=== PATIENT | male | born 1965 | race Caucasian/White ===

== ENCOUNTER → 2018-11-04 08:22 | Outpatient (CLI) | payer OTHER, MEDICAID, SELFPAY ==
[2018-11-04 09:57] LABS: Alanine Aminotransferase 35 IU/L (21-72); Albumin 4.1 g/dL (3.5-5.0); Albumin Globulin Ratio 1.2 (1.0-2.8); Alkaline Phosphatase 125 U/L (38-126); Aspartate Aminotransferase 19 IU/L (17-59); BUN Creatinine Ratio 14.3 (6-22); Bilirubin Total 0.3 mg/dL (0.2-1.3); Blood Urea Nitrogen 10 mg/dL (9-20); Calcium 9.1 mg/dL (8.4-10.2); Carbon Dioxide 31 mmol/L (22-32); Chloride 102 mmol/L (98-107); Cholesterol 148 mg/dL (140-199); Estimated Glomerular Filt Rate > 60.0 mL/min (>60); Globulin 3.3 g/dL (1.7-4.1); Glucose 91 mg/dL (70-100); HDL Cholesterol 54 mg/dL (40-60); HEMOLYSIS < 15 (0-50); LDL Cholesterol Calculated 77 mg/dL (<100); Potassium 4.7 mmol/L (3.4-5.1); Sodium 145 mmol/L (137-145); Total Protein 7.4 g/dL (6.3-8.2); Triglycerides 86 mg/dL (35-150)
[2018-11-04 10:24] LABS: Prostate Specific Antigen 0.968 ng/mL (0.10-4.00)
== END ==
PROVIDERS: PCP Physician Assistant; Visit Provider Physician Assistant
DX: D50.9 Iron deficiency anemia, unspecified (principal); E66.9 Obesity, unspecified; K22.2 Esophageal obstruction; Z51.81 Encounter for therapeutic drug level monitoring; Z79.899 Other long term (current) drug therapy
CPT/HCPCS: 36415; 80053; 80061; 84153

== ENCOUNTER → 2019-03-24 10:43 | Outpatient (CLI) | payer OTHER, MEDICAID, SELFPAY | PROVIDERS: PCP Physician Assistant; Visit Provider Physician Assistant | DX: J02.9 Acute pharyngitis, unspecified (principal) | CPT/HCPCS: 87070 ==

== ENCOUNTER 2019-09-19 13:38 | Inpatient (IN) | payer OTHER, MEDICAID, SELFPAY ==
[2019-09-19] VITALS (9 sets, daily range): BP systolic 120–159; BP diastolic 55–83; PULSE 87–130; RESP 12–24; TEMP 36.8–37.5; O2SAT 92–100; BMI 31.6
--- NOTE | 2019-09-19 13:42 | DI.RAD.S_ITS ---
PROCEDURE: XR CHEST 1V INDICATIONS: sob TECHNIQUE: One view of the chest was acquired. COMPARISON: None. FINDINGS: Surgical changes and devices: None. Lungs and pleura: Lungs are clear. No pleural effusions or pneumothorax. Mediastinum: Mediastinal contours appear normal. Heart size is normal. Bones and chest wall: No suspicious bony lesions. Overlying soft tissues appear unremarkable. IMPRESSION: No acute cardiopulmonary abnormality. Dictated by: Blaine Murry M.D. on 09/19/2019 at 13:23 Approved by: Blaine Murry M.D. on 09/19/2019 at 13:25
[2019-09-19] MEDS: SODIUM CHLORIDE 0.9% 1,000 ML 1000 ML IV (13:48)
[2019-09-19] MEDS: methylPREDNISolone 125 MG/2 ML VIAL IV (13:48)
--- NOTE | 2019-09-19 13:49 | PC.NURSE ---
on arrival respiratory at bedside. pt speaking one word at a time, placed on bipap by respiratory per dr blancas order. pt speaking 2-4 words after bipap placed. pt coughing up sputum 1-2 times as well after arrival. pt states he has felt sick for 2 weeks.
--- NOTE | 2019-09-19 13:53 | ED.SOB ---
HPI - SOB/Dyspnea General Chief Complaint: Shortness of Breath/Dyspnea Stated Complaint: Respiratory Distress Time Seen by Provider: 09/19/19 13:41 Source: EMS Mode of arrival: EMS History of Present Illness HPI Narrative: Patient is a 54-year-old male history of asthma presenting with acute onset shortness of breath. According to EMS he was 88% on room air he was given multiple DuoNeb treatments in route he continues to be in try potting in acute respiratory distress. He is able to speak now and is starting to feel better he starting to cough up more.. He denies any chest pain. No prior intubations. Patient states that over the past 2 weeks he has been eating his albuterol inhaler more frequently than normal. He has also been coughing up thick mucus. He has been having some increasing shortness of breath with exertion. Complaint: shortness of breath Onset (ago): minute(s) Related Data Home Medications Medication Instructions Recorded Confirmed albuterol sulfate INHALATION 09/19/19 tramadol mg 09/19/19 Allergies Allergy/AdvReac Type Severity Reaction Status Date / Time No Known Drug Allergies Allergy Verified 09/19/19 13:47 Review of Systems Review of Systems ROS Unobtainable: All systems reviewed & are unremarkable except as noted in HPI and below Constitutional Constitutional: Denies chills, Denies fever(s), Denies lethargy and Denies weakness Eyes Eyes: Denies change in vision, Denies eye discharge, Denies irritation and Denies loss of vision ENT Ears, Nose, Mouth, and Throat: Denies change in voice, Denies neck pain and Denies sore throat Cardiovascular Cardiovascular: Denies chest pain, Denies irregular heart rhythm, Denies lightheadedness, Denies palpitations and Denies orthopnea Respiratory Respiratory: Reports as per HPI, Reports change in phlegm color, Reports chest congestion and Reports cough Gastrointestinal Gastrointestinal: Denies abdominal pain, Denies change in bowel habits, Denies diarrhea, Denies nausea and Denies vomiting Musculoskeletal Musculoskeletal: Denies neck pain Integumentary/Breasts Skin/Breast: Denies pruritus, Denies erythema, Denies rash and Denies wounds Neurologic Neurologic: Denies loss of vision and Denies weakness Endocrine Endocrine: Denies palpitations Patient History Medical History (Updated 09/19/19 @ 18:04 by Jyothi Ferraro MD) Asthma (Acute) Chronic GERD (Acute) Gastric ulcer (Acute) History of umbilical hernia (Acute) Osteoarthrosis, ankle and foot (Acute) Surgical History (Updated 09/19/19 @ 18:04 by Jyothi Ferraro MD) Status post ORIF of fracture of ankle (Acute) Family History (Updated 09/19/19 @ 18:05 by Jyothi Ferraro MD) Father Throat cancer Social History household members: spouse Smoking Status: Former smoker Family History (Updated 09/19/19 @ 18:05 by Jyothi Ferraro MD) Father Throat cancer Social History household members: spouse Smoking Status: Former smoker tobacco type: cigarettes alcohol intake frequency: holidays/special occasions only Substance Use Type: does not use Exam Initial Vital Signs Initial Vital Signs: Vital Signs Temperature 98.2 F 09/19/19 13:35 Pulse Rate 130 H 09/19/19 13:35 Respiratory Rate 24 09/19/19 13:35 Blood Pressure 159/83 H 09/19/19 13:35 Pulse Oximetry 98 09/19/19 13:35 GENERAL: Try potting slightly cyanotic and mottled, alert HEENT: Head atraumatic,EOMI, pupils reactive, face symmetric CARDIOVASCULAR: Regular rate and rhythm without murmurs, rubs or gallops. RESPIRATORY: Decreased breath sounds bilaterally speaks in 1 word sentences ABDOMEN: Soft, nontender. Normoactive bowel sounds all 4 quadrants. No guarding or rebound. EXTREMITIES: Normal range of motion, no clubbing or edema. Neurovascularly intact NEUROLOGICAL: Alert and oriented x4.Normal gait and speech. Cranial nerves II through XII grossly intact. SKIN: Warm, dry, no laceration, no petechiae, no rashes or lesions. Course Orders Ordered: ED Orders 09/19/19 13:40 B Type Natriuretic Peptide Stat Complete Blood Count AUTO DIFF Stat Comprehensive Metabolic Panel Stat Lactate (Lactic Acid) Stat Magnesium Stat Partial Thromboplastin Time Stat Procalcitonin Stat Prothrombin Time INR Stat Troponin & CK Cardiac Panel Stat 09/19/19 13:42 Consult to Respiratory Therapy Evaluate & Treat XR chest 1V Stat 09/19/19 13:45 Arterial Blood Gas Stat 09/19/19 14:07 Blood Culture Stat Acetaminophen (Tylenol) 650 mg PO Q6HR PRN PRN Reason: As Needed for Fever/Mild Pain Albuterol (Ventolin) 2.5 mg INH Q1HR PRN PRN Reason: Shortness Of Breath Or Wheezing Albuterol/Ipratropium (Duoneb) 3 ml INH RTQ4HR PRN PRN Reason: Shortness Of Breath Enoxaparin Sodium (Lovenox) 40 mg SUBCUT DAILY [facility] Sodium Chloride (Normal Saline 0.9%) 1,000 mls @ 1,000 mls/hr IV BOLUS PRN PRN Reason: Fluid replacement Last Infusion: 09/19/19 14:55 Dose: 0 mls/hr Documented by: Admin: 09/19/19 13:48 Dose: 1,000 mls/hr Documented by: JAYA Methylprednisolone (Solu-Medrol 125 Mg Vial) 60 mg IV Q8H [facility] Last Admin: 09/19/19 18:17 Dose: 60 mg Documented by: JENNIFER Metoclopramide HCl (Reglan) 10 mg IV Q6HR PRN PRN Reason: Nausea And Vomiting Pantoprazole Sodium (Protonix) 40 mg PO 0600,1800 [facility] Last Admin: 09/19/19 19:06 Dose: 40 mg Documented by: JENNIFER Discontinued Medications Albuterol (Proventil 0.5% Neb Solution) 10 mg INH CONT REZA Stop: 09/19/19 14:42 Last Admin: 09/19/19 14:05 Dose: 10 mg Documented by: KIMBERLY Methylprednisolone (Solu-Medrol 125 Mg Vial) 125 mg IV NOW ONE Stop: 09/19/19 13:43 Last Admin: 09/19/19 13:48 Dose: 125 mg Documented by: JAYA Vital Signs Vital signs: Vital Signs - 8 hr 09/19/19 13:35 09/19/19 13:55 09/19/19 14:38 Temperature 98.2 F Pulse Rate 130 H 119 H 116 H Respiratory Rate 24 16 19 Blood Pressure 159/83 H Blood Pressure [Right Arm] 159/83 H 138/73 Pulse Oximetry 98 98 100 09/19/19 15:18 Temperature Pulse Rate 113 H Respiratory Rate 17 Blood Pressure Blood Pressure [Right Arm] 140/75 Pulse Oximetry 94 MDM - SOB/Dyspnea Lab Data Attestation: I reviewed the patient's lab results. Result diagrams: 09/19/19 13:40 09/19/19 13:40 Labs: Lab Results 09/19/19 09/19/19 09/19/19 Range/Units 13:40 13:40 13:40 WBC 11.7 H (4.5-11.0) X10^3/uL RBC 5.61 (4.5-5.9) X10^6/uL Hgb 13.4 L (13.5-17.5) g/dL Hct 41.4 (41-53) % MCV 73.8 L (80-100) fL MCH 23.9 L (26-34) PG MCHC 32.3 (30-36) % RDW 17.5 H (11.6-14.8) % Plt Count 487 H (150-400) X10^3/uL Neut % (Auto) 37.2 L (50-75) % Lymph % (Auto) 47.5 H (25-40) % [place] % (Auto) 8.2 (3-14) % Eos % (Auto) 5.9 H (2-4) % Baso % (Auto) 1.2 (0-2) % Neut # (Auto) 4400 (1561-0405) /uL Lymph # (Auto) 5600 H (2754-2267) /uL [place] # (Auto) 1000 H (0-900) /uL Eos # (Auto) 700 H (0-450) /uL Baso # (Auto) 100 (0-100) /uL PT 10.5 (10.1-12.7) SECONDS INR 0.9 (0.9-1.3) APTT 40 H (26.4-36.2) SECONDS ABG pH (7.35-7.45) ABG pCO2 (35-45) mmHg ABG pO2 (80-100) mmHg ABG HCO3 (22-26) mmol/L ABG Total CO2 (21-31) mmol/L ABG O2 Saturation (95-100) % ABG Base Excess (-2-2) mmol/L FiO2 Sodium 142 (137-145) mmol/L Potassium 3.6 (3.4-5.1) mmol/L Chloride 105 (98-107) mmol/L Carbon Dioxide 22 (22-32) mmol/L BUN 17 (9-20) mg/dL Creatinine 0.70 (0.66-1.25) mg/dL Estimated GFR > 60.0 (>60) mL/min BUN/Creatinine Ratio 24.3 H (6-22) Glucose 126 H (70-100) mg/dL Lactate (0.7-2.1) mmol/L Calcium 8.8 (8.4-10.2) mg/dL Magnesium 2.5 H (1.6-2.3) mg/dL Total Bilirubin 0.4 (0.2-1.3) mg/dL AST 43 (17-59) IU/L ALT 23 (21-72) IU/L Alkaline Phosphatase 155 H (38-126) U/L Total Creatine Kinase 140 (55-170) U/L CK-MB (CK-2) 1.39 (<2.37) ng/mL CK-MB (CK-2) Rel Index 1.0 L (1.5-5.0) % Troponin I < 0.012 (0.01-0.034) ng/mL B-Natriuretic Peptide < 100 (<100) Total Protein 8.4 H (6.3-8.2) g/dL Albumin 4.6 (3.5-5.0) g/dL Globulin 3.8 (1.7-4.1) g/dL Albumin/Globulin Ratio 1.2 (1.0-2.8) Procalcitonin (<0.5) ng/mL 09/19/19 09/19/19 09/19/19 Range/Units 13:40 13:40 13:45 WBC (4.5-11.0) X10^3/uL RBC (4.5-5.9) X10^6/uL Hgb (13.5-17.5) g/dL Hct (41-53) % MCV (80-100) fL MCH (26-34) PG MCHC (30-36) % RDW (11.6-14.8) % Plt Count (150-400) X10^3/uL Neut % (Auto) (50-75) % Lymph % (Auto) (25-40) % [place] % (Auto) (3-14) % Eos % (Auto) (2-4) % Baso % (Auto) (0-2) % Neut # (Auto) (9305-8804) /uL Lymph # (Auto) (8298-0909) /uL [place] # (Auto) (0-900) /uL Eos # (Auto) (0-450) /uL Baso # (Auto) (0-100) /uL PT (10.1-12.7) SECONDS INR (0.9-1.3) APTT (26.4-36.2) SECONDS ABG pH 7.37 (7.35-7.45) ABG pCO2 45.9 H (35-45) mmHg ABG pO2 127 H (80-100) mmHg ABG HCO3 26 (22-26) mmol/L ABG Total CO2 28 (21-31) mmol/L ABG O2 Saturation 99 (95-100) % ABG Base Excess 1.0 (-2-2) mmol/L FiO2 0.50 Sodium (137-145) mmol/L Potassium (3.4-5.1) mmol/L Chloride (98-107) mmol/L Carbon Dioxide (22-32) mmol/L BUN (9-20) mg/dL Creatinine (0.66-1.25) mg/dL Estimated GFR (>60) mL/min BUN/Creatinine Ratio (6-22) Glucose (70-100) mg/dL Lactate 1.9 (0.7-2.1) mmol/L Calcium (8.4-10.2) mg/dL Magnesium (1.6-2.3) mg/dL Total Bilirubin (0.2-1.3) mg/dL AST (17-59) IU/L ALT (21-72) IU/L Alkaline Phosphatase (38-126) U/L Total Creatine Kinase (55-170) U/L CK-MB (CK-2) (<2.37) ng/mL CK-MB (CK-2) Rel Index (1.5-5.0) % Troponin I (0.01-0.034) ng/mL B-Natriuretic Peptide (<100) Total Protein (6.3-8.2) g/dL Albumin (3.5-5.0) g/dL Globulin (1.7-4.1) g/dL Albumin/Globulin Ratio (1.0-2.8) Procalcitonin < 0.05 (<0.5) ng/mL Imaging Data Chest x-ray: Radiologist's impression: PROCEDURE: XR CHEST 1V INDICATIONS: sob TECHNIQUE: One view of the chest was acquired. COMPARISON: None. FINDINGS: Surgical changes and devices: None. Lungs and pleura: Lungs are clear. No pleural effusions or pneumothorax. Mediastinum: Mediastinal contours appear normal. Heart size is normal. Bones and chest wall: No suspicious bony lesions. Overlying soft tissues appear unremarkable. IMPRESSION: No acute cardiopulmonary abnormality. Dictated by: Blaine Murry M.D. on 09/19/2019 at 13:23 ECG Data Attestation: I personally reviewed and interpreted this ECG as follows: Prior ECG tracings: not available for review Interpretation: Sinus tachycardia rate 108 p.r. interval 177 for rest [address] elevations is or T-wave inversions. No sign of ischemia. MDM Narrative Medical decision making narrative: Patient is tolerating BiPAP very well he is able to speak in full sentences. He is placed on continuous nebulizer overall breathing started to improve having wheezing in his chest now. He wanted to try with the mask off. It is in his BiPAP was stopped he actually started coughing. He does cough up thickened mucus. He is feeling better. The patient has a history of asthma seems to be asthma exacerbation. He has no leukocytosis procalcitonin elevation or pneumonia on x-ray. At this time no indication for antibiotics. Dr. ferraro updated on patient's symptoms test results in the ED to see and evaluate patient Discharge Plan Departure Patient Disposition: Admitted As Inpatient Clinical Impression: Asthma with exacerbation Qualifiers: Asthma severity: severe Asthma persistence: unspecified Qualified Code(s): J45.901 - Unspecified asthma with (acute) exacerbation Discharge Date/Time: 09/19/19 17:20 Admit Date/Time: 09/19/19 15:45 Admit Provider: Jyothi Ferraro
[2019-09-19 14:04] LABS: HCO3 ABG 26 mmol/L (22-26); Oxygen Saturation ABG 99 % (95-100); PCO2 ABG 45.9 mmHg (35-45); PO2 ABG 127 mmHg (80-100); TCO2 ABG 28 mmol/L (21-31); pH ABG 7.37 (7.35-7.45)
[2019-09-19] MEDS: ALBUTEROL 0.5% CONTINUOUS NEB 10 MG INH (14:05)
[2019-09-19 14:10] LABS: INR 0.9 (0.9-1.3); Prothrombin Time 10.5 SECONDS (10.1-12.7)
[2019-09-19 14:12] LABS: PTT Partial Thromboplastin Tim 40 SECONDS (26.4-36.2)
[2019-09-19 14:14] LABS: Alanine Aminotransferase 23 IU/L (21-72); Albumin 4.6 g/dL (3.5-5.0); Albumin Globulin Ratio 1.2 (1.0-2.8); Alkaline Phosphatase 155 U/L (38-126); Aspartate Aminotransferase 43 IU/L (17-59); BUN Creatinine Ratio 24.3 (6-22); Bilirubin Total 0.4 mg/dL (0.2-1.3); Blood Urea Nitrogen 17 mg/dL (9-20); Calcium 8.8 mg/dL (8.4-10.2); Carbon Dioxide 22 mmol/L (22-32); Chloride 105 mmol/L (98-107); Creatine Kinase 140 U/L (55-170); Estimated Glomerular Filt Rate > 60.0 mL/min (>60); Globulin 3.8 g/dL (1.7-4.1); Glucose 126 mg/dL (70-100); Magnesium 2.5 mg/dL (1.6-2.3); Potassium 3.6 mmol/L (3.4-5.1); Sodium 142 mmol/L (137-145); Total Protein 8.4 g/dL (6.3-8.2)
[2019-09-19 14:16] LABS: B Type Natriuretic Peptide < 100 (<100)
[2019-09-19 14:39] LABS: Lactate (Lactic Acid) 1.9 mmol/L (0.7-2.1)
[2019-09-19 14:47] LABS: Procalcitonin < 0.05 ng/mL (<0.5)
[2019-09-19 14:59] LABS: Creatine Kinase MB 1.39 ng/mL (<2.37); Troponin I < 0.012 ng/mL (0.01-0.034)
[2019-09-19 15:05] LABS: Add Manual Diff / Slide Review NO; Basophils Absolute Auto 100 /uL (0-100); Basophils Percent Auto 1.2 % (0-2); Eosinophils Absolute Auto 700 /uL (0-450); Eosinophils Percent Auto 5.9 % (2-4); Hematocrit 41.4 % (41-53); Hemoglobin 13.4 g/dL (13.5-17.5); Lymphocytes Absolute Auto 5600 /uL (1100-4500); Lymphocytes Percent Auto 47.5 % (25-40); Mean Corpuscular HGB Conc 32.3 % (30-36); Mean Corpuscular Hemoglobin 23.9 PG (26-34); Mean Corpuscular Volume 73.8 fL (80-100); Monocytes Absolute Auto 1000 /uL (0-900); Monocytes Percent Auto 8.2 % (3-14); Neutrophils Absolute Auto 4400 /uL (1500-7000); Neutrophils Percent Auto 37.2 % (50-75); Platelet Count 487 X10^3/uL (150-400); Red Blood Cell Count 5.61 X10^6/uL (4.5-5.9); Red Cell Distribution Width 17.5 % (11.6-14.8); White Blood Cell Count 11.7 X10^3/uL (4.5-11.0)
--- NOTE | 2019-09-19 15:28 | PC.NURSE ---
lung sounds +aeration, wheezing, sat 94-96% with RA.
--- NOTE | 2019-09-19 17:03 | PM.HP.1 ---
History of Present Illness History of Present Illness Date Patient Seen: 09/19/19 Time Patient Seen: 17:36 Chief complaint: Respiratory Distress Narrative: This is a 54 year old male with Acute Bronchospam and hypoxia. He works nights at a [employer] [place] and then sleeps during the day. Early this afternoon while sleeping at his usual time he began coughing and then was awakened as he aspirated gastric secretions due to his severe GERD. This produced increased coughing, which had already been escalating over the last 3 days. On arrival at the emergency department he was in acute hypoxic respiratory failure with an asthma exacerbation. He was tripoding and was satting in the 89-91% range on room air. With immediate application of BiPAP and continuous nebulizer albuterol his oxygenation improved and he was able to stabilize and come off the BiPAP after several hours. His cough is noted be productive of thick yellow mucus sputum. He has an extensive GERD history and reports an EGD two and a half years ago showing normal Esophagus but a small ulcer in his stomach. Since then he has been taking 40 mg of Omeprazole BID. With this coughing he has had some retrosternal chest pain pleuritic in nature. He additionally takes 4-8 Advil during his 12 hour shifts at the [employer]. There has been no fever, chills, sweats. Patient History Medical History (Updated 09/19/19 @ 18:04 by Jyothi Ferraro MD) Asthma (Acute) Chronic GERD (Acute) Gastric ulcer (Acute) History of umbilical hernia (Acute) Osteoarthrosis, ankle and foot (Acute) Surgical History (Updated 09/19/19 @ 18:04 by Jyothi Ferraro MD) Status post ORIF of fracture of ankle (Acute) Family History (Updated 09/19/19 @ 18:05 by Jyothi Ferraro MD) Father Throat cancer Social History household members: spouse Smoking Status: Former smoker Family & Social History Family History (Updated 09/19/19 @ 18:05 by Jyothi Ferraro MD) Father Throat cancer Safety & Behavioral: Feels Safe in Current Yes Environment Been Physically Hurt or No Threatened By a Person Tobacco & Substance use: Smoking Status Former smoker alcohol intake frequency holiday/special occasion Substance Use Type does not use Comment: His backup decision maker is his in [place] and his primary care physician is CHAPIS Jones. Meds Home Medications and Allergies Home Medications Medication Instructions Recorded Confirmed Type albuterol sulfate INHALATION 09/19/19 History tramadol mg 09/19/19 History Allergies Allergy/AdvReac Type Severity Reaction Status Date / Time No Known Drug Allergies Allergy Verified 09/19/19 13:47 Review of Systems Review of Systems Narrative: Positive for shortness of breath, substernal chest pain and coughing productive. Negative for fevers, chills, sweats, abdominal pain, nausea, vomiting, diarrhea, bleeding, rashes, seizures, sore throat, new allergies, trouble talking, trouble walking. ROS Unobtainable: All systems reviewed & are unremarkable except as noted in HPI and below Exam Vital Signs (past 8 hours): - 09/19/19 13:35 09/19/19 13:55 09/19/19 14:38 Temperature 98.2 F Pulse Rate 130 H 119 H 116 H Respiratory Rate 24 16 19 Blood Pressure 159/83 H Blood Pressure [Right Arm] 159/83 H 138/73 Pulse Oximetry 98 98 100 09/19/19 15:18 09/19/19 16:21 Temperature Pulse Rate 113 H 108 H Respiratory Rate 17 15 Blood Pressure Blood Pressure [Right Arm] 140/75 120/65 Pulse Oximetry 94 94 Fraction of Inspired Oxygen 40 Oxygen Delivery Method Room Air Oxygen Flow Rate 15 Narrative Exam Narrative: He is alert and oriented x3. He appears to be in mild respiratory distress, losing breath with short sentences. Pupils are equally round and reactive to light and accommodation. Extraocular muscles are intact. No lymph nodes are felt head neck or supraclavicular area. Sclerae are pink and nonicteric. Throat looks normal. There is no thyromegaly. JVD is less than 6 cm and no carotid bruits are heard. Heart is regular rate and rhythm without murmur. Lungs have diffuse wheezing bilaterally. Abdomen is very distended/obese, soft, nontender, no organomegaly, bowel sounds are active. Extremities have no ankle edema. Neuro exam. Cranial nerves 2-12 tested intact. Motor function is 5/5 throughout. There is no tremor. Skin has no rash or jaundice. There is scar on the right ankle. Objective Labs Result Diagrams: 09/19/19 13:40 09/19/19 13:40 Labs: Laboratory Results - last 24 hr 09/19/19 09/19/19 09/19/19 13:40 13:40 13:40 WBC 11.7 H RBC 5.61 Hgb 13.4 L Hct 41.4 MCV 73.8 L MCH 23.9 L MCHC 32.3 RDW 17.5 H Plt Count 487 H Neut % (Auto) 37.2 L Lymph % (Auto) 47.5 H [place] % (Auto) 8.2 Eos % (Auto) 5.9 H Baso % (Auto) 1.2 Neut # (Auto) 4400 Lymph # (Auto) 5600 H [place] # (Auto) 1000 H Eos # (Auto) 700 H Baso # (Auto) 100 PT 10.5 INR 0.9 APTT 40 H ABG pH ABG pCO2 ABG pO2 ABG HCO3 ABG Total CO2 ABG O2 Saturation ABG Base Excess FiO2 Sodium 142 Potassium 3.6 Chloride 105 Carbon Dioxide 22 BUN 17 Creatinine 0.70 Estimated GFR > 60.0 BUN/Creatinine Ratio 24.3 H Glucose 126 H Lactate Calcium 8.8 Magnesium 2.5 H Total Bilirubin 0.4 AST 43 ALT 23 Alkaline Phosphatase 155 H Total Creatine Kinase 140 CK-MB (CK-2) 1.39 CK-MB (CK-2) Rel Index 1.0 L Troponin I < 0.012 B-Natriuretic Peptide < 100 Total Protein 8.4 H Albumin 4.6 Globulin 3.8 Albumin/Globulin Ratio 1.2 Procalcitonin 09/19/19 09/19/19 09/19/19 13:40 13:40 13:45 WBC RBC Hgb Hct MCV MCH MCHC RDW Plt Count Neut % (Auto) Lymph % (Auto) [place] % (Auto) Eos % (Auto) Baso % (Auto) Neut # (Auto) Lymph # (Auto) [place] # (Auto) Eos # (Auto) Baso # (Auto) PT INR APTT ABG pH 7.37 ABG pCO2 45.9 H ABG pO2 127 H ABG HCO3 26 ABG Total CO2 28 ABG O2 Saturation 99 ABG Base Excess 1.0 FiO2 0.50 Sodium Potassium Chloride Carbon Dioxide BUN Creatinine Estimated GFR BUN/Creatinine Ratio Glucose Lactate 1.9 Calcium Magnesium Total Bilirubin AST ALT Alkaline Phosphatase Total Creatine Kinase CK-MB (CK-2) CK-MB (CK-2) Rel Index Troponin I B-Natriuretic Peptide Total Protein Albumin Globulin Albumin/Globulin Ratio Procalcitonin < 0.05 Assessment & Plan Assessment and plan (1) Asthma: Current visit: Yes Status: Acute Assessment & Plan narrative: Acute hypoxic respiratory failure -this appears to be a classic asthmatic bronchospasm presentation/exacerbation. -with BiPAP in the emergency department his oxygenation has improved quite readily but his wheezing and dyspnea are still quite impressive. -he will need to be observed closely in the intensive care unit in case he needs BiPAP again. -continue albuterol and use IV Solu-Medrol. Osteoarthritis of the ankle -not expected to be symptomatic while at bedrest -holding ibuprofen at this time Severe GERD -continue high-dose oral Protonix
[2019-09-19] MEDS: methylPREDNISolone 125 MG/2 ML VIAL 60 MG IV (18:17)
[2019-09-19] MEDS: ALBUTEROL/IPRATROPIUM 3 ML AMPUL INH ×2 (18:20→21:54)
[2019-09-19] MEDS: PANTOPRAZOLE 40 MG TABLET PO (19:06)
[2019-09-20 00:03] VITALS: BP 127/53; PULSE 105; RESP 20; TEMP 37.4; O2SAT 95
[2019-09-20] MEDS: methylPREDNISolone 125 MG/2 ML VIAL 60 MG IV ×2 (00:53→09:30)
[2019-09-20] MEDS: ALBUTEROL/IPRATROPIUM 3 ML AMPUL INH ×2 (02:40→07:26)
[2019-09-20 02:41] VITALS: PULSE 102; RESP 20; O2SAT 93
[2019-09-20 05:09] VITALS: BP 142/48; PULSE 103; RESP 19; TEMP 37.2; O2SAT 93
[2019-09-20 05:26] LABS: Add Manual Diff / Slide Review NO; Basophils Absolute Auto 0 /uL (0-100); Basophils Percent Auto 0.2 % (0-2); Eosinophils Absolute Auto 0 /uL (0-450); Hematocrit 35.6 % (41-53); Hemoglobin 11.5 g/dL (13.5-17.5); Lymphocytes Absolute Auto 500 /uL (1100-4500); Lymphocytes Percent Auto 5.2 % (25-40); Mean Corpuscular HGB Conc 32.3 % (30-36); Mean Corpuscular Hemoglobin 23.6 PG (26-34); Monocytes Absolute Auto 100 /uL (0-900); Monocytes Percent Auto 0.8 % (3-14); Neutrophils Absolute Auto 8800 /uL (1500-7000); Neutrophils Percent Auto 93.8 % (50-75); Platelet Count 407 X10^3/uL (150-400); Red Blood Cell Count 4.88 X10^6/uL (4.5-5.9); Red Cell Distribution Width 17.5 % (11.6-14.8); White Blood Cell Count 9.4 X10^3/uL (4.5-11.0)
[2019-09-20 05:32] LABS: BUN Creatinine Ratio 18.6 (6-22); Blood Urea Nitrogen 13 mg/dL (9-20); Calcium 8.6 mg/dL (8.4-10.2); Carbon Dioxide 22 mmol/L (22-32); Chloride 103 mmol/L (98-107); Estimated Glomerular Filt Rate > 60.0 mL/min (>60); Glucose 295 mg/dL (70-100); HEMOLYSIS < 15 (0-50); Sodium 138 mmol/L (137-145)
[2019-09-20] MEDS: PANTOPRAZOLE 40 MG TABLET PO (05:34)
[2019-09-20 07:18] VITALS: BP 133/68; PULSE 107; RESP 14; TEMP 37.1; O2SAT 94
[2019-09-20 07:28] VITALS: PULSE 96; RESP 17; O2SAT 96
[2019-09-20 08:33] LABS: Hemoglobin A1C% w Est Avg Glu 5.7 % (4.0-6.0)
[2019-09-20] MEDS: ENOXAPARIN 40 MG/0.4 ML SYRINGE SUBCUT (09:30)
--- NOTE | 2019-09-20 10:07 | PC.NURSE ---
Addendum entered by Bibiana Loyola R.N. 09/20/19 13:41: Discharge information provided in cluding Rx for steroids. IV removed and Tele removed. Pt requesting nebulizer for home albuterol use. Request called to Dr Ferraro for d/c. Original Note: Am shift Pt is A/o x4, up ambulating to BR indep. Some SOB noted with activity. Exp wheeze, otherwise clear to auscultation. Spo2 95% RA. Pt with long Hx of Asthma , education provided for elevated CBG while on steroids. Dr Ferraro into see Pt re:follow up with PCP.
--- NOTE | 2019-09-20 11:47 | PM.DS.1 ---
History of Present Illness History of Present Illness Date Patient Seen: 09/20/19 Time Patient Seen: 12:36 Chief complaint: Respiratory Distress Narrative: This is a 54 year old male with Acute Bronchospam and hypoxia. He works nights at a [employer] and then sleeps during the day. Early this afternoon while sleeping at his usual time he began coughing and then was awakened as he aspirated gastric secretions due to his severe GERD. This produced increased coughing, which had already been escalating over the last 3 days. On arrival at the emergency department he was in acute hypoxic respiratory failure with an asthma exacerbation. He was tripoding and was satting in the 89-91% range on room air. With immediate application of BiPAP and continuous nebulizer albuterol his oxygenation improved and he was able to stabilize and come off the BiPAP after several hours. His cough is noted be productive of thick yellow mucus sputum. He has an extensive GERD history and reports an EGD two and a half years ago showing normal Esophagus but a small ulcer in his stomach. Since then he has been taking 40 mg of Omeprazole BID. With this coughing he has had some retrosternal chest pain pleuritic in nature. He additionally takes 4-8 Advil during his 12 hour shifts at the [employer]. There has been no fever, chills, sweats. Discharge Providers Provider Date of admission: 09/19/19 15:45 Discharge Date: 09/20/19 Primary care physician: Kanwal Jones PA-C Consults: 09/19/19 13:42 Consult to Respiratory Therapy Evaluate & Treat Comment: Physician Instructions: Evaluate and treat Discharge provider: Jyothi Ferraro MD Summary Hospital Course Discharge Diagnosis: Asthma Acute hypoxic respiratory failure Osteoarthritis of the ankle Severe GERD Chemical Diabetes Hospital Course: Asthma: Acute hypoxic respiratory failure -this appears to be a classic asthmatic bronchospasm presentation/exacerbation. -with BiPAP in the emergency department his oxygenation improved quite readily but his wheezing and dyspnea were still quite impressive so he required ICU care overnight. -he improved much more quickly than predictable and is now stable for discharge home. -continue albuterol inhaler, add nebulizer albuterol per his request, continue prednisone and follow up with primary care soon. Osteoarthritis of the ankle -advised to avoid excessive use of ibuprofen and to work on losing weight to control both his tendency towards pre diabetes and his severe reflux. Severe GERD -continue high-dose oral Omeprazole (40 mg BID), speak with his primary care about referral for surgical treatment due to the complications this is causing, now with this acute bronchospastic admission caused by the acid reflux. 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 Exam Vital Signs (past 8 hours): - 09/20/19 05:09 09/20/19 07:18 09/20/19 07:28 Temperature 98.9 F 98.7 F Pulse Rate 103 H 107 H 96 H Respiratory Rate 19 14 17 Blood Pressure 142/48 H 133/68 Pulse Oximetry 93 94 96 Fraction of Inspired Oxygen 21 Oxygen Delivery Method Room Air Oxygen Flow Rate 0 Narrative Exam Narrative: He is alert and oriented x3. No apparent distress. Heart is regular rate and rhythm without murmur. Lungs are now clear to auscultation bilaterally. There is no ankle edema. Objective Labs Result Diagrams: 09/20/19 05:00 09/20/19 05:00 Labs: Laboratory Results - last 24 hr 09/19/19 09/19/19 09/19/19 13:40 13:40 13:40 WBC 11.7 H RBC 5.61 Hgb 13.4 L Hct 41.4 MCV 73.8 L MCH 23.9 L MCHC 32.3 RDW 17.5 H Plt Count 487 H Neut % (Auto) 37.2 L Lymph % (Auto) 47.5 H [place] % (Auto) 8.2 Eos % (Auto) 5.9 H Baso % (Auto) 1.2 Neut # (Auto) 4400 Lymph # (Auto) 5600 H [place] # (Auto) 1000 H Eos # (Auto) 700 H Baso # (Auto) 100 PT 10.5 INR 0.9 APTT 40 H ABG pH ABG pCO2 ABG pO2 ABG HCO3 ABG Total CO2 ABG O2 Saturation ABG Base Excess FiO2 Sodium 142 Potassium 3.6 Chloride 105 Carbon Dioxide 22 BUN 17 Creatinine 0.70 Estimated GFR > 60.0 BUN/Creatinine Ratio 24.3 H Glucose 126 H Hemoglobin A1c Lactate Calcium 8.8 Magnesium 2.5 H Total Bilirubin 0.4 AST 43 ALT 23 Alkaline Phosphatase 155 H Total Creatine Kinase 140 CK-MB (CK-2) 1.39 CK-MB (CK-2) Rel Index 1.0 L Troponin I < 0.012 B-Natriuretic Peptide < 100 Total Protein 8.4 H Albumin 4.6 Globulin 3.8 Albumin/Globulin Ratio 1.2 Procalcitonin Nasal Screen MRSA (PCR) 09/19/19 09/19/19 09/19/19 13:40 13:40 13:45 WBC RBC Hgb Hct MCV MCH MCHC RDW Plt Count Neut % (Auto) Lymph % (Auto) [place] % (Auto) Eos % (Auto) Baso % (Auto) Neut # (Auto) Lymph # (Auto) [place] # (Auto) Eos # (Auto) Baso # (Auto) PT INR APTT ABG pH 7.37 ABG pCO2 45.9 H ABG pO2 127 H ABG HCO3 26 ABG Total CO2 28 ABG O2 Saturation 99 ABG Base Excess 1.0 FiO2 0.50 Sodium Potassium Chloride Carbon Dioxide BUN Creatinine Estimated GFR BUN/Creatinine Ratio Glucose Hemoglobin A1c Lactate 1.9 Calcium Magnesium Total Bilirubin AST ALT Alkaline Phosphatase Total Creatine Kinase CK-MB (CK-2) CK-MB (CK-2) Rel Index Troponin I B-Natriuretic Peptide Total Protein Albumin Globulin Albumin/Globulin Ratio Procalcitonin < 0.05 Nasal Screen MRSA (PCR) 09/19/19 09/20/19 09/20/19 18:42 05:00 05:00 WBC 9.4 RBC 4.88 Hgb 11.5 L Hct 35.6 L MCV 73.0 L MCH 23.6 L MCHC 32.3 RDW 17.5 H Plt Count 407 H Neut % (Auto) 93.8 H D Lymph % (Auto) 5.2 L D [place] % (Auto) 0.8 L Eos % (Auto) 0.0 L Baso % (Auto) 0.2 Neut # (Auto) 8800 H Lymph # (Auto) 500 L [place] # (Auto) 100 Eos # (Auto) 0 Baso # (Auto) 0 PT INR APTT ABG pH ABG pCO2 ABG pO2 ABG HCO3 ABG Total CO2 ABG O2 Saturation ABG Base Excess FiO2 Sodium 138 Potassium 4.0 Chloride 103 Carbon Dioxide 22 BUN 13 Creatinine 0.70 Estimated GFR > 60.0 BUN/Creatinine Ratio 18.6 Glucose 295 H D Hemoglobin A1c Lactate Calcium 8.6 Magnesium Total Bilirubin AST ALT Alkaline Phosphatase Total Creatine Kinase CK-MB (CK-2) CK-MB (CK-2) Rel Index Troponin I B-Natriuretic Peptide Total Protein Albumin Globulin Albumin/Globulin Ratio Procalcitonin Nasal Screen MRSA (PCR) Negative for mrsa 09/20/19 05:00 WBC RBC Hgb Hct MCV MCH MCHC RDW Plt Count Neut % (Auto) Lymph % (Auto) [place] % (Auto) Eos % (Auto) Baso % (Auto) Neut # (Auto) Lymph # (Auto) [place] # (Auto) Eos # (Auto) Baso # (Auto) PT INR APTT ABG pH ABG pCO2 ABG pO2 ABG HCO3 ABG Total CO2 ABG O2 Saturation ABG Base Excess FiO2 Sodium Potassium Chloride Carbon Dioxide BUN Creatinine Estimated GFR BUN/Creatinine Ratio Glucose Hemoglobin A1c 5.7 Lactate Calcium Magnesium Total Bilirubin AST ALT Alkaline Phosphatase Total Creatine Kinase CK-MB (CK-2) CK-MB (CK-2) Rel Index Troponin I B-Natriuretic Peptide Total Protein Albumin Globulin Albumin/Globulin Ratio Procalcitonin Nasal Screen MRSA (PCR) Discharge Plan Discharge Plan Patient Disposition: Home Discharge comment: Follow up with [facility] in one week. Continue the 40mg twice daily Omeprazole. Discharge Med Rec/Prescriptions Prescriptions: New prednisone 10 mg tablet 10 mg PO TID Qty: 30 RF: 0 albuterol sulfate 2.5 mg /3 mL (0.083 %) solution for nebulization 2.5 mg INHALATION Q4-6H PRN (Reason: shortness of breath or wheezing) Qty: 90 RF: 0 Continued albuterol sulfate 90 mcg/actuation HFA aerosol inhaler INHALATION RF: 0 tramadol 50 mg Tablet RF: 0 Follow up/Referrals: Kanwal Jones PA-C [Primary Care Provider] - Provider Discharge Instructions Diet: Regular Visit Report/Discharge Packet Instructions: DI for Asthma -- Adult, Prednisone (By mouth) Discharge Data Primary Care Provider: Kanwal Jones
[2019-09-20 11:56] VITALS: BP 128/66; PULSE 99; RESP 13; TEMP 37.2; O2SAT 93
--- NOTE | 2019-09-20 14:30 | CM.DANOTE ---
DCP/Assessment: Reviewed chart. Patient is a 54yr old male admitted to [facility] with acute hypoxiic respiratory failure/asthma. PCP is Kanwal Jones PA-C. Primary payor is 1)[facility] 2)Medicaid. Discussed case in AM rounds with Dr. Ferraro. He reports that patient will be discharging home today without any d/c planning needs. Patient with h/o asthma and medically turned around quickly after nebulizer treatment, short time on Bipap, and steroids. P: Home today with spouse/family. DEREK Briscoe
== END 2019-09-20 14:16 | disposition home or self-care (01) | DRG 133 ==
LOC: ED 15:44 → AC 15:46 → ICU 09-20 07:55
PROVIDERS: Admitting Provider Family Medicine; Emergency Provider Emergency Medicine; PCP Physician Assistant; Visit Provider Family Medicine
DX: J96.01 Acute respiratory failure with hypoxia (principal); J45.901 Unspecified asthma with (acute) exacerbation; K21.9 Gastro-esophageal reflux disease without esophagitis; E09.9 Drug or chemical induced diabetes mellitus without complications; T38.0X5A Adverse effect of glucocorticoids and synthetic analogues, initial encounter; M19.079 Primary osteoarthritis, unspecified ankle and foot; Z87.891 Personal history of nicotine dependence
CPT/HCPCS: 36415; 36600; 71045; 80048; 80053; 82550; 82553; 82805; 83036; 83605; 83735; 83880; 84145; 84484; 85025; 85610; 85730; 87040; 87797; 93005; 93041; 94640; 94660; 94762; 96361; 96374; 99285; J1650; J2930; J7611

== ENCOUNTER → 2019-09-30 12:48 | Outpatient (CLI) | payer OTHER, MEDICAID, SELFPAY ==
[2019-09-19 13:56] VITALS: PULSE 113; RESP 22; O2SAT 100
[2019-09-19 17:52] VITALS: BMI 31.6
[2019-10-02 19:22] LABS: Urea Breath Test >18YRS NOT DETECTED
== END ==
PROVIDERS: PCP Physician Assistant; Visit Provider Nurse Practitioner
DX: K21.0 Gastro-esophageal reflux disease with esophagitis (principal); K22.2 Esophageal obstruction
CPT/HCPCS: 83013

== ENCOUNTER → 2022-11-07 18:11 | Outpatient (CLI) | payer OTHER, MEDICAID, SELFPAY ==
[2019-09-19 13:56] VITALS: PULSE 113; RESP 22; O2SAT 100
[2019-09-19 17:52] VITALS: BMI 31.6
[2022-11-08 12:55] LABS: COVID-19 CEPHEID 4-PLEX PCR Negative (Negative); Influenza A - CEPHEID Flu A POSITIVE (NEGATIVE); Influenza B - CEPHEID Flu B NEGATIVE (NEGATIVE); Respiratory Syncytial Virus Negative (Negative)
== END ==
PROVIDERS: PCP Family Medicine; Visit Provider Physician Assistant
DX: R05.1 Acute cough (principal)
CPT/HCPCS: 0241U

== ENCOUNTER 2022-12-16 13:11 | Emergency (ER) | payer OTHER, MEDICAID, SELFPAY ==
[2019-09-19 13:56] VITALS: PULSE 113; RESP 22; O2SAT 100
[2019-09-19 17:52] VITALS: BMI 31.6
[2022-12-16 13:31] VITALS: BP 156/72; PULSE 103; RESP 24; TEMP 36.9; O2SAT 95; BMI 23.7
--- NOTE | 2022-12-16 13:35 | DI.RAD.S_ITS ---
PROCEDURE: XR CHEST 1V INDICATIONS: Short of breath, asthma, coughing TECHNIQUE: One view of the chest was acquired. COMPARISON: [facility], , XR CHEST 1V, 09/19/2019, 13:49. [facility], CR, CHEST 1 VIEW, 12/04/2015, 14:35. [facility], CR, CHEST 1 VIEW, 03/17/2017, 13:20. FINDINGS: Surgical changes and devices: None. Lungs and pleura: Minimal patchy opacities can be seen at the lung bases. No pleural effusions or pneumothorax. Mediastinum: Mediastinal contours appear normal. Heart size is normal. Bones and chest wall: No suspicious bony lesions. Overlying soft tissues appear unremarkable. IMPRESSION: Minimal patchy opacities can be seen at the lung bases. Differential diagnosis includes early infiltrate and atelectasis. If clinically appropriate, a short-term followup chest series (with PA and lateral views) performed in deep inspiration is suggested for further evaluation. Dictated by: Anup Vaz M.D. on 12/16/2022 at 12:53 Approved by: Anup Vaz M.D. on 12/16/2022 at 12:54
[2022-12-16] MEDS: ALBUTEROL/IPRATROPIUM 3 ML AMPUL INH (13:36)
[2022-12-16 13:39] VITALS: PULSE 104; RESP 22; O2SAT 96
[2022-12-16 13:41] VITALS: PULSE 104; RESP 20; O2SAT 99
[2022-12-16 14:33] VITALS: BP 109/65; PULSE 109; RESP 22; O2SAT 96
--- NOTE | 2022-12-16 14:51 | ED.SOB ---
HPI - SOB/Dyspnea General Chief Complaint: Shortness of Breath/Dyspnea Stated Complaint: Asthma, hard time breathing Time Seen by Provider: 12/16/22 14:45 History of Present Illness HPI Narrative: 57-year-old male smoker with history of COPD presents with his significant other and a chief complaint of increasing wheezing and shortness of breath over the past 12 hours or so. He has been using his inhaler with increased frequency but does not have a chamber. He has access to plenty of nebs but lost his nebulizer. He is had some nasal congestion but denies sore throat, headache or neck pain. Deep breath does elicit cough which has developed some purulent sputum. He denies chest pain or hemoptysis. He is had no recent travel, trauma, history of blood clot or known cancer. He denies nausea, vomiting or diarrhea. Related Data Previous Rx's Medication Instructions Recorded hydrocodone 5 mg-acetaminophen 325 See Rx Instructions PO .COMPLEX 01/04/22 mg tablet pain #60 tabs azithromycin 250 mg tablet See Rx Instructions PO .COMPLEX #6 03/15/22 tabs ketoconazole 2 % topical cream 1 applic topical DAILY #60 grams 05/01/22 terbinafine HCl 250 mg tablet 250 mg PO .COMPLEX #36 tabs 05/01/22 tramadol 50 mg tablet See Rx Instructions .Route 08/02/22 .COMPLEX #60 tabs prednisone 5 mg tablet 5 mg PO DAILY #21 tabs 11/07/22 albuterol sulfate 90 mcg/actuation See Rx Instructions .Route 11/08/22 aerosol inhaler .COMPLEX #8.5 grams Compact Compressor Nebulizer #1 ea 12/16/22 (nebulizers) amoxicillin 500 mg capsule 1,000 mg PO Q8H 5 days #30 caps 12/16/22 prednisone 10 mg tablet See Rx Instructions .Route 12/16/22 .COMPLEX #30 tabs Allergies Allergy/AdvReac Type Severity Reaction Status Date / Time No Known Drug Allergies Allergy Verified 11/07/22 18:27 Review of Systems Review of Systems Narrative: GENERAL: See HPI HEENT: See HPI RESPIRATORY: See HPI CARDIOVASCULAR: See HPI GASTROINTESTINAL: Denies nausea, vomiting, abdominal pain, diarrhea, constipation, melena. : Denies dysuria, frequency, incontinence, hematuria, urinary retention. MUSCULOSKELETAL: denies weakness, joint pain, or bony pain SKIN: Denies rash, skin lesions, or other NEUROLOGIC: Denies weakness, headache, numbness, change in speech, confusion, seizures, incoordination. PSYCHIATRIC: No concerning psychosocial issues. 12 point review of systems is negative except for those stated above Patient History Medical History (Updated 12/16/22 @ 14:55 by Mason Olivas DO) Asthma Bronchitis Chronic GERD Chronic left shoulder pain Gastric ulcer History of umbilical hernia Onychomycosis Osteoarthrosis, ankle and foot Screening for hyperlipidemia Screening for prostate cancer Tobacco dependence Surgical History (Updated 03/29/21 @ 16:02 by Yoan Rivera DO) History of hernia repair Status post ORIF of fracture of ankle Family History Grandmother Age: 100 Malignant neoplasm of pancreas, unspecified location of malignancy Father Throat cancer Social History (System 09/22/19 @ 15:05 by Marisela Corcoran) household members: spouse Smoking Status: Current every day smoker alcohol intake: current substance use type: does not use Smoking Status: Current every day smoker tobacco type: cigarettes alcohol intake frequency: holidays/special occasions only Substance Use Type: does not use Exam Narrative Exam Narrative: GENERAL: [57] year old patient appears older than stated age. Well-developed patient, in mild distress. HEAD: Atraumatic. Normocephalic. EYES: Pupils equal round and reactive. Extraocular motions intact. No scleral icterus. No injection or drainage. ENT: Nose without bleeding, purulent drainage. Throat without erythema, tonsillar hypertrophy or exudate. Airway patent. NECK: Trachea midline. Non tender CARDIOVASCULAR: Regular rate and rhythm without murmurs, gallops, or rubs. RESPIRATORY: Decreased breath sounds throughout with prolonged expiratory phase, wheezes noted throughout, no rales or rhonchi. No use of accessory muscles, no hypoxemia GASTROINTESTINAL: Abdomen soft, non-tender, nondistended. EXTREMITIES: No edema or joint tenderness. BACK: Nontender without deformity or crepitance. No flank tenderness. NEURO: AOx3. SKIN: No rash or erythema of visible areas Initial Vital Signs Initial Vital Signs: Vital Signs Temperature 98.5 F 12/16/22 13:31 Pulse Rate 103 H 12/16/22 13:31 Respiratory Rate 24 12/16/22 13:31 Blood Pressure 156/72 H 01/15/23 13:31 Pulse Oximetry 95 01/15/23 13:31 Oxygen Delivery Method 12/16/22 13:31 Course Orders Ordered: Discontinued Medications Albuterol/Ipratropium (Albuterol/Ipratropium 3 Ml Ampul) 3 ml INH NOW ONE Stop: 12/16/22 13:34 Last Admin: 12/16/22 13:36 Dose: 3 ml Documented By: CTS Reevaluation(s) Reevaluation #1: Significant improvement after above-stated therapies, patient given spacer Vital Signs Vital signs: Vital Signs - 8 hr 12/16/22 13:31 12/16/22 13:39 12/16/22 13:41 Temperature 98.5 F Pulse Rate 103 H 104 H 104 H Respiratory Rate 24 22 20 Blood Pressure 156/72 H Pulse Oximetry 95 96 99 Oxygen Delivery Method Room Air Room Air Room Air Oxygen Flow Rate 0 Fraction of Inspired Oxygen 21 12/16/22 14:33 Temperature Pulse Rate 109 H Respiratory Rate 22 Blood Pressure 109/65 Pulse Oximetry 96 Oxygen Delivery Method Room Air Oxygen Flow Rate Fraction of Inspired Oxygen MDM - SOB/Dyspnea MDM Narrative Medical decision making narrative: [57-year-old smoker with reactive airway disease presents with worsening symptoms this morning. He has no fever or chills, no significant shortness of breath, no chest pain or hemoptysis] Multiple etiologies for patient's symptoms considered including, but not limited to: [asthma/COPD exacerbation, pneumonia, CHF, pulmonary embolism versus other] History obtained from patient and significant other Prior Charts reviewed: Including prior charts from our emergency department Labs reviewed and interpreted by myself: Imaging reviewed: Chest x-ray demonstrates by basilar infiltrates Patient with history of smoking and COPD has increased wheeze and cough with yellowish sputum. He has significant improvement with bronchodilators and steroids. Chest x-ray shows evidence of pneumonia. Patient is not hypoxemic or in significant respiratory distress and does not demonstrate need for hospitalization. CHF considered but thought unlikely given lack of exertional symptoms, orthopnea or lower extremity edema. Pulmonary embolism considered but thought unlikely given lack of chest pain, tachycardic, hypoxemia, hemoptysis and significant improvement with above-stated therapies. Patient's symptoms improved over duration of stay with above-stated therapies. Findings and discharge diagnosis discussed with patient/family followed by verbalization of understanding Return precautions discussed with patient/family whom verbalize understanding of diagnosis and plan Discharge Plan Departure Patient Disposition: Home Clinical Impression: COPD (chronic obstructive pulmonary disease), Community acquired pneumonia Instructions: Chronic Obstructive Pulmonary Disease, DI for Pneumonia -- Adult Activity Restrictions/Additional Instructions: *You have been diagnosed with [acute COPD exacerbation and community-acquired pneumonia] *What to do: *Please continue to take your regular medications as directed. [ x] New medication prescriptions sent to your pharmacy: [ [facility]] [ ] New medication written as a paper prescription [ ] No new medications given *Please follow up with your primary care provider in 2-3 days, call for an appointment. Let them know you were seen in the Emergency Department and that we ask that you be seen in follow up. We will electronically transmit a record of today's note *Return to Emergency Department if you should have any new, worsening or concerning symptoms, such as [fever greater than 101 F, shaking chills, worsening pain, persistent vomiting or other bothersome symptoms] Prescriptions: New amoxicillin 500 mg capsule 1,000 mg PO Q8H 5 Days Qty: 30 0RF prednisone 10 mg tablet See Rx Instructions .ROUTE .COMPLEX Qty: 30 0RF Rx Instructions: Day 1,2,3: 40mg PO Daily Day 4,5,6: 30mg PO Daily Day 7,8,9: 20mg PO Daily Day 10,11,12: 10mg PO Daily #30 (DME) nebulizers [Compact Compressor Nebulizer] [facility] See Rx Instructions .Route Qty: 1 0RF Rx Instructions: As directed No Action prednisone 5 mg tablet 5 mg PO DAILY Qty: 21 0RF Rx Instructions: Take 6 tabs on day 1 and 5 tabs on day 2 and 4 tabs on day 3 and 3 tabs on day 4 and 2 tabs on day 5 and 1 tab on day 6 hydrocodone-acetaminophen 5-325 mg tablet See Rx Instructions PO .COMPLEX Qty: 60 0RF Rx Instructions: PO twice a day PRN EXEMPT tramadol 50 mg tablet See Rx Instructions .ROUTE .COMPLEX Qty: 60 0RF Rx Instructions: Take 1-2 tablets by mouth at bedtime and if needed for pain albuterol sulfate 90 mcg/actuation HFA aerosol inhaler See Rx Instructions .ROUTE .COMPLEX Qty: 8.5 3RF Dose Instruction: inhale 2 puffs by mouth every 4 to 6 hours if needed for shortness of breath Rx Instructions: inhale 2 puffs by mouth every 4 to 6 hours if needed for shortness of breath terbinafine HCl 250 mg tablet 250 mg PO .COMPLEX Qty: 36 3RF Rx Instructions: three times per week, 250 mg PO; ketoconazole 2 % cream 1 applic topical DAILY Qty: 60 5RF azithromycin 250 mg tablet See Rx Instructions PO .COMPLEX Qty: 6 0RF Rx Instructions: take 500 mg today (day 1), then 250 mg for 4 days (days 2-5) PO Referrals: Yoan Rivera DO [Primary Care Provider] - Stand Alone Forms: Patient Portal/API
[2022-12-16 15:01] VITALS: BP 131/85; PULSE 100; RESP 18; O2SAT 96
== END 2022-12-16 15:03 | disposition home or self-care (01) ==
PROVIDERS: Emergency Provider Emergency Medicine; PCP Family Medicine
DX: J18.9 Pneumonia, unspecified organism (principal); J44.9 Chronic obstructive pulmonary disease, unspecified
CPT/HCPCS: 71045; 94640; 99283

== ENCOUNTER → 2023-11-04 18:37 | Outpatient (CLI) | payer OTHER, MEDICAID, SELFPAY ==
[2019-09-19 13:56] VITALS: PULSE 113; RESP 22; O2SAT 100
[2019-09-19 17:52] VITALS: BMI 31.6
--- NOTE | 2023-11-04 18:40 | DI.RAD.S_ITS ---
PROCEDURE: XR CHEST 2V INDICATIONS: Cough TECHNIQUE: 2 views of the chest were acquired. COMPARISON: [facility], CR, XR CHEST 1V, 12/16/2022, 13:32. FINDINGS: Surgical changes and devices: None. Lungs and pleura: Mild opacity at the left costophrenic angle. Mediastinum: Mediastinal contours are normal. Heart size is normal. Bones and chest wall: No suspicious bony abnormalities. Soft tissues appear unremarkable. IMPRESSION: New opacity at the left costophrenic angle possibly related to effusion versus developing airspace disease such as pneumonia/atelectasis. Recommend interval follow-up to document resolution. Dictated by: Lani Galeana M.D. on 11/05/2023 at 13:33 Approved by: Lain Galeana M.D. on 11/05/2023 at 13:34
== END ==
PROVIDERS: PCP Family Medicine; Referring Provider Physician Assistant; Visit Provider Physician Assistant
DX: R05.9 Cough, unspecified (principal)
CPT/HCPCS: 71046

== ENCOUNTER → 2024-03-23 17:39 | Outpatient (CLI) | payer OTHER, MEDICAID, SELFPAY ==
[2019-09-19 13:56] VITALS: PULSE 113; RESP 22; O2SAT 100
[2019-09-19 17:52] VITALS: BMI 31.6
== END ==
PROVIDERS: PCP Family Medicine; Visit Provider Nurse Practitioner Family
DX: L03.90 Cellulitis, unspecified (principal)
CPT/HCPCS: 87070; 87075; 87077; 87147; 87205

== ENCOUNTER → 2024-10-10 16:33 | Outpatient (CLI) | payer OTHER, MEDICAID, SELFPAY ==
[2019-09-19 13:56] VITALS: PULSE 113; RESP 22; O2SAT 100
[2019-09-19 17:52] VITALS: BMI 31.6
--- NOTE | 2024-10-10 16:35 | DI.RAD.S_ITS ---
PROCEDURE: XR CHEST 2V INDICATIONS: Shortness of breath TECHNIQUE: 2 views of the chest were acquired. COMPARISON: [facility], , XR CHEST 2V, 11/04/2023, 19:49. [facility], CR, XR CHEST 1V, 12/16/2022, 13:32. FINDINGS: Surgical changes and devices: None. Lungs and pleura: Lungs are clear. No pleural effusions or pneumothorax. Mediastinum: Mediastinal contours are normal. Heart size is normal. Bones and chest wall: No suspicious bony abnormalities. Soft tissues appear unremarkable. IMPRESSION: No acute cardiopulmonary abnormality is seen. Dictated by: Ana Laura Dunn M.D. on 10/10/2024 at 16:24 Approved by: Ana Laura Dunn M.D. on 10/10/2024 at 16:25
== END ==
PROVIDERS: PCP Family Medicine; Referring Provider Registered Nurse; Visit Provider Registered Nurse
DX: R06.02 Shortness of breath (principal)
CPT/HCPCS: 71046

== ENCOUNTER 2025-03-21 23:00 | Emergency (ER) | payer OTHER, SELFPAY ==
[2019-09-19 13:56] VITALS: PULSE 113; RESP 22; O2SAT 100
[2019-09-19 17:52] VITALS: BMI 31.6
[2025-03-21 23:00] VITALS: BP 133/92; PULSE 96; RESP 18; TEMP 36.9; O2SAT 97; BMI 23.7
--- NOTE | 2025-03-21 23:07 | ED_ITS ---
HPI - Dental/Oral General Stated complaint: tooth px Time Seen by Provider: 03/21/25 23:06 History of Present Illness HPI Narrative: 59-year-old male past medical history of COPD not requiring supplemental oxygen at baseline presents for right upper jaw/dental pain. He states that this has been ongoing intermittent for the past few days, states that he has been trying to take Motrin for this but pain still persists, rates it 5/10. States that he does have a dentist that takes walk-in and just needs something to ?hold him over. He denies any other symptoms such as headache visual disturbances chest pain shortness breath fever chills nausea vomiting abdominal or any other GI/ symptoms. On exam he has been in full sentences no voice changes no stridor no trismus. He is nontoxic appearing Related Data Previous Rx's Medication Instructions Recorded ketoconazole 2 % topical cream 1 applic topical DAILY #60 grams 05/01/22 terbinafine HCl 250 mg tablet 250 mg PO .COMPLEX #36 tabs 05/01/22 Compact Compressor Nebulizer #1 ea 12/16/22 (nebulizers) budesonide-formoterol HFA 160 2 puff inhalation BID #10.2 grams 02/26/24 mcg-4.5 mcg/actuation aerosol inhaler (Symbicort) mupirocin 2 % topical ointment 1 applic topical TID #22 grams 03/23/24 albuterol sulfate 1.25 mg/3 mL 1.25 mg (3 mL) inhalation Q4-6H 05/20/24 solution for nebulization PRN shortness of breath or wheezing #75 mL tadalafil 20 mg tablet 20 mg PO DAILY PRN sexual activity 11/17/24 #30 tabs albuterol sulfate 90 mcg/actuation 2 puff PO Q4-6H PRN for dyspnea 02/16/25 aerosol inhaler #8.5 grams amoxicillin 875 mg-potassium 1 tab PO BID 10 days #20 tabs 03/21/25 clavulanate 125 mg tablet naproxen 500 mg tablet (Naprosyn) 500 mg PO BID PRN pain 1 week #14 03/21/25 tabs Allergies Allergy/AdvReac Type Severity Reaction Status Date / Time No Known Drug Allergies Allergy Verified 10/10/24 15:54 Review of Systems Review of Systems Narrative: General: Denies fever, chills, weight loss HEENT: Positive dental pain, Denies headache, eye drainage, eye irritation, head trauma, sore throat, voice change Cardiovascular: Denies any chest pain, palpitations, tachycardia Respiratory: Denies any shortness of breath, cough, wheeze, stridor GI/: Denies any abdominal pain, nausea, vomiting, diarrhea, bright red blood per rectum, melanotic stools, urinary frequency, urinary retention, dysuria, hematuria MSK: Denies any joint pain, muscle pains, swelling Skin: Denies any rashes, lesions, discoloration Neuro: Denies any headache, lightheadedness, dizziness, fainting, weakness Psych: Denies SI/HI Patient History Medical History Erectile dysfunction Microcytic anemia Onychomycosis Bronchitis Chronic left shoulder pain Screening for prostate cancer Screening for hyperlipidemia Tobacco dependence History of umbilical hernia Osteoarthrosis, ankle and foot Chronic GERD Gastric ulcer Asthma Surgical History History of hernia repair Status post ORIF of fracture of ankle Family History Grandmother Age: 103 Malignant neoplasm of pancreas, unspecified location of malignancy Father Throat cancer Social History (System 09/22/19 @ 15:05 by Marisela Corcoran) household members: spouse alcohol intake: current substance use type: does not use tobacco type: cigarettes alcohol intake frequency: holidays/special occasions only Exam Narrative Exam Narrative: General: Cooperative, well-developed, not in acute distress HEENT: Posterior oropharynx is clear without any signs of obstruction, multiple dental caries noted, there is no periapical abscess noted. No voice changes no stridor no trismus Normocephalic, atraumatic, PERRLA, normal sclera, eyelids normal Neck: Active full range of motion, atraumatic Chest: Normal to inspection, negative crepitus, no overlying erythema ecchymosis Respiratory: Normal respiratory effort, not in acute respiratory distress, clear to auscultation bilaterally negative cough, wheeze, tachypnea, rhonchi, rales Cardiology: Regular rate rhythm negative gallop, murmur, rubs GI/: No tenderness to palpation, soft, non rigid, normal to inspection, exam deferred MSK: Full active range of motion in all 4 extremities, atraumatic, no tenderness to palpation of any bony prominences Skin: No rashes or lesions noted Neuro: Alert awake oriented x3, moves all 4 extremities spontaneously, cranial nerves intact, able to answer all questions appropriately follows commands appropriately Psych: Cooperative, negative suicidal or homicidal ideations MDM - Dental/Oral Differential Diagnosis Differential diagnosis: Likely dental caries, toothache and dental abscess MDM Narrative Medical decision making narrative: 59-year-old male history of COPD not requiring supplemental oxygen at baseline comes in for dental pain. States it has been ongoing for the past few days, states he has been trying to manage this with Motrin but pain started to get worse therefore decided come into the ED for further evaluation treatment. On exam he is speaking full sentences protecting airway no voice changes no stridor no trismus, there is no periapical abscesses noted, but patient does have multiple dental caries, he states that he is supposed to go to a walk-in dental clinic but needs something to ?hold him down until he can get there tomorrow. Patient will be started on Augmentin as well as given a dose of Percocet. He will be discharged home with Augmentin and Naprosyn for his symptoms. He was instructed to follow up with the dentist in his primary care in outpatient setting he verbalized understanding of this and agrees to being discharged home with outpatient follow up Discharge Plan Departure Patient Disposition: Home Clinical Impression: Pain, dental Instructions: DI for Dental Pain Activity Restrictions/Additional Instructions: Please follow up with a dentist in your primary care doctor Please read the discharge instructions sheet carefully and bring all papers to all doctor follow-up visits, as it may contain information that your doctor may want to see. Disease processes change and evolve, if your symptoms worsen or if you develop any new symptoms that are concerning to you please return for evaluation. Your evaluation today does not show any evidence of any life- threatening/serious illnesses requiring admission to the hospital or surgery. Please follow-up with your doctor for re-evaluation in approximately 1 day. Seek immediate medical attention for any worrisome symptoms. *If you do not have a primary care provider please contact the [facility] Resource line at [phone]. They will ask some questions about your medical history and help get you set up with a doctor in the community. Prescriptions: New amoxicillin-pot clavulanate 875-125 mg tablet 1 tab PO BID 10 Days Qty: 20 0RF naproxen [Naprosyn] 500 mg tablet 500 mg PO BID PRN (Reason: pain) 7 Days Qty: 14 0RF No Action mupirocin 2 % ointment 1 applic topical TID Qty: 22 1RF budesonide-formoterol [Symbicort] 160-4.5 mcg/actuation HFA aerosol inhaler 2 puff inhalation BID Qty: 10.2 0RF albuterol sulfate 1.25 mg/3 mL solution for nebulization 1.25 mg inhalation Q4-6H PRN (Reason: shortness of breath or wheezing) Qty: 75 0RF tadalafil 20 mg tablet 20 mg PO DAILY PRN (Reason: sexual activity) Qty: 30 5RF Rx Instructions: administer approximately 30min before sexual activity; do not use more than 1 dose per 24hrs albuterol sulfate 90 mcg/actuation HFA aerosol inhaler 2 puff PO Q4-6H PRN (Reason: for dyspnea) Qty: 8.5 0RF terbinafine HCl 250 mg tablet 250 mg PO .COMPLEX Qty: 36 3RF Rx Instructions: three times per week, 250 mg PO; ketoconazole 2 % cream 1 applic topical DAILY Qty: 60 5RF (DME) nebulizers [Compact Compressor Nebulizer] Misc See Rx Instructions .Route Qty: 1 0RF Rx Instructions: As directed Referrals: Yoan Rivera DO [Primary Care Provider] - Stand Alone Forms: Patient Portal/API/Survey
[2025-03-21] MEDS: OXYCODONE/ACETAMINOPHEN 5/325 TABLET 1 TAB PO (23:14)
[2025-03-21] MEDS: AMOXICILLIN/CLAV 875/125 MG 1 TAB PO (23:14)
== END 2025-03-21 23:17 | disposition home or self-care (01) ==
PROVIDERS: Emergency Provider Student in an Organized Health Care Education/Training Program; PCP Family Medicine
DX: R68.84 Jaw pain (principal); K08.89 Other specified disorders of teeth and supporting structures
CPT/HCPCS: 99283

== ENCOUNTER → 2025-09-28 17:37 | Outpatient (CLI) | payer OTHER, SELFPAY ==
[2019-09-19 13:56] VITALS: PULSE 113; RESP 22; O2SAT 100
[2019-09-19 17:52] VITALS: BMI 31.6
--- NOTE | 2025-09-28 17:40 | DI.RAD.S_ITS ---
PROCEDURE: XR CHEST 2V INDICATIONS: Cough TECHNIQUE: 2 views of the chest were acquired. COMPARISON: [facility], CR, XR CHEST 2V, 10/10/2024, 16:41. FINDINGS: Surgical changes and devices: None. Lungs and pleura: Lungs are clear. No pleural effusions or pneumothorax. Mediastinum: Mediastinal contours are normal. Heart size is normal. Bones and chest wall: No suspicious bony abnormalities. Soft tissues appear unremarkable. Age-appropriate degenerative changes of the imaged spine. No acute compression fracture. IMPRESSION: No acute cardiopulmonary abnormalities or focal consolidation. Dictated by: Fausto Butler M.D. on 09/28/2025 at 18:00 Approved by: Fausto Butler M.D. on 09/28/2025 at 18:00
== END ==
LOC: RAD 17:39
PROVIDERS: PCP Family Medicine; Referring Provider Nurse Practitioner Family; Visit Provider Nurse Practitioner Family
DX: R05.9 Cough, unspecified (principal)
CPT/HCPCS: 71046